=== PATIENT | male | born 1985 | race Caucasian/White ===

== ENCOUNTER → 2024-01-29 16:59 | Outpatient (REF) | payer BC, SELFPAY | LOC: RAD 16:59 | PROVIDERS: ATTENDING PHYSICIAN Registered Nurse | DX: K76.0 Fatty (change of) liver, not elsewhere classified (principal) | CPT/HCPCS: 76700 ==

== ENCOUNTER 2024-11-25 06:04 | Day surgery (SDC) | payer BC, SELFPAY ==
[2024-11-25 06:27] VITALS: BMI 40.0
[2024-11-25 06:28] VITALS: BMI 40.0
[2024-11-25 06:29] VITALS: BP 103/71
[2024-11-25] MEDS: NORMOSOL-R/PLASMALYTE-A 1000 IV (06:38)
[2024-11-25 06:46] LABS: Glucose - Point of Care 115 mg/dl (70-99)
[2024-11-25 08:18] VITALS: BP 103/71; BP 113/52
[2024-11-25 08:30] VITALS: BP 122/78
[2024-11-25 08:31] LABS: Glucose - Point of Care 99 mg/dl (70-99)
[2024-11-25 08:55] VITALS: BP 132/78
[2024-11-25 09:15] VITALS: BP 130/88
[2024-11-25] MEDS: ROXICODONE 5 MG PO (09:26)
[2024-11-25 09:45] VITALS: BP 120/83
== END 2024-11-25 09:50 | disposition home or self-care (01) ==
LOC: SDS 06:04
PROVIDERS: ATTENDING PHYSICIAN Specialist
DX: Z30.2 Encounter for sterilization (principal)
CPT/HCPCS: 55250; 88302; 82962